=== PATIENT | male | born 1940 | race Caucasian/White ===

== ENCOUNTER 2020-01-30 10:01 | Day surgery (SDC) | payer OTHER ==
[2020-01-26 16:11] VITALS: BMI 37.5
[2020-01-30] MEDS ORDERED: PROPOFOL 20 ML ONE ×3 (10:16)
[2020-01-30] MEDS ORDERED: LIDOCAINE HCL/PF 2% SDV 5ML VIAL ONE (10:16)
[2020-01-30 10:18] VITALS: TEMP 98.8
[2020-01-30 11:54] VITALS: BP 112/60; PULSE 56
== END 2020-01-30 11:45 | disposition home or self-care (01) ==
LOC: FASU-ENDO 10:01
PROVIDERS: ATTEND Internal Medicine Gastroenterology
PROC: 0DJD8ZZ Inspection of Lower Intestinal Tract, Via Natural or Artificial Opening Endoscopic (ICD-10-PCS; principal; 2020-01-30 10:37)
DX: Z86.010 Personal history of colon polyps (principal); Z80.0 Family history of malignant neoplasm of digestive organs; K57.30 Diverticulosis of large intestine without perforation or abscess without bleeding; K64.8 Other hemorrhoids

== ENCOUNTER 2020-10-29 05:58 | Day surgery (SDC) | payer OTHER ==
[2020-10-29] MEDS ORDERED: LIDOCAINE HCL/PF 2% SDV 5ML VIAL ONE (07:06)
[2020-10-29] MEDS ORDERED: PROPOFOL 20 ML ONE (07:06)
[2020-10-29] MEDS ORDERED: SUCCINYLCHOLINE CHLORIDE 200 MG/10 ML SYRINGE ONE (07:07)
[2020-10-29] MEDS ORDERED: MIDAZOLAM HCL 2 MG/2 ML SINGLE DOSE VIAL ONE (07:07)
[2020-10-29 07:11] VITALS: BMI 37.5
[2020-10-29] MEDS ORDERED: EPINEPHrine 1:1,000 1 MG/1 ML - 30ML VIAL (INJECTION) ONE (07:17)
[2020-10-29] MEDS ORDERED: BUPIVACAINE HCL/PF 2.5 MG/ML - 30 ML VIAL IJ ONE (07:17)
[2020-10-29] MEDS ORDERED: ceFAZolin SODIUM 1 GM VIAL ONE (07:53)
[2020-10-29] MEDS ORDERED: EPHEDRINE SULFATE/0.9% NACL/PF 50 MG/10 ML SYRINGE NR ONE (08:03)
[2020-10-29] MEDS ORDERED: ONDANSETRON 4 MG/2 ML VIAL ONE (09:20)
[2020-10-29] MEDS ORDERED: oxyCODONE HCL 5 MG TABLET PO PRN (10:08)
[2020-10-29] MEDS ORDERED: ONDANSETRON 4 MG/2 ML VIAL IVPUSH PRN (10:08)
[2020-10-29 10:14] VITALS: TEMP 97.8
[2020-10-29] MEDS ORDERED: LACTATED RINGERS SOLUTION 1,000 ML IV SCH (10:15)
[2020-10-29 10:29] VITALS: BP 122/64; PULSE 58
== END 2020-10-29 11:00 | disposition home or self-care (01) ==
LOC: FASU 05:58
PROVIDERS: ATTEND Orthopaedic Surgery
PROC: 0SBD4ZZ Excision of Left Knee Joint, Percutaneous Endoscopic Approach (ICD-10-PCS; 2020-10-29)
PROC: 0SBD4ZZ Excision of Left Knee Joint, Percutaneous Endoscopic Approach (ICD-10-PCS; 2020-10-29)
PROC: 0SBD4ZZ Excision of Left Knee Joint, Percutaneous Endoscopic Approach (ICD-10-PCS; principal; 2020-10-29 08:03)
DX: S83.242A Other tear of medial meniscus, current injury, left knee, initial encounter (principal); S83.282A Other tear of lateral meniscus, current injury, left knee, initial encounter; S83.8X2A Sprain of other specified parts of left knee, initial encounter; M65.862 Other synovitis and tenosynovitis, left lower leg; X58.XXXA Exposure to other specified factors, initial encounter; Y92.9 Unspecified place or not applicable; Y93.9 Activity, unspecified
CPT/HCPCS: 94760